=== PATIENT | female | born 1995 | race Two or more races ===

== ENCOUNTER 2016-11-23 15:35 | Emergency (ER) | payer MEDICAID, OTHER ==
[~2016-11-23] VITALS: Ht 160 cm; Wt 77.1 kg
[2016-11-23] MEDS ORDERED: HYDR-971 PO (16:53)
[2016-11-23] MEDS ORDERED: ORPH100T PO (16:53)
[2016-11-23] MEDS ORDERED: NAPR550T PO (16:53)
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
[2016-11-23 17:00] VITALS: BP 149/92
== END 2016-11-23 17:10 | disposition home or self-care (01) ==
LOC: ER 15:35
DX: S16.1XXA Strain of muscle, fascia and tendon at neck level, initial encounter (principal); S09.90XA Unspecified injury of head, initial encounter; V43.53XA Car driver injured in collision with pick-up truck in traffic accident, initial encounter; Y92.413 State road as the place of occurrence of the external cause; Y93.89 Activity, other specified; Y99.8 Other external cause status
CPT/HCPCS: 99283